=== PATIENT | female | born 1995 | race American Indian/Alaskan Native ===

== ENCOUNTER 2016-12-18 11:04 | Outpatient (CLI) | payer BC | END 2016-12-18 11:05 | disposition home or self-care (01) | LOC: VAS 11:04 | PROVIDERS: ATTEND Family Medicine | DX: M79.605 Pain in left leg (principal) ==

== ENCOUNTER 2021-12-26 15:45 | Emergency (ER) | payer BC, MEDICAID ==
[2021-12-26 18:26] LABS: Alanine Aminotransferase 15 units/L (7-56); Albumin 4.1 g/dL (3.9-5); BUN/Creatinine Ratio 16; Blood Urea Nitrogen 8 mg/dL (7-17); Calcium 9.4 mg/dL (8.4-10.2); Hemolysis Index 29
[2021-12-26 18:37] LABS: Bilirubin,Urine NEG (Negative); Blood,Urine MOD (Negative); Color,Urine Yellow (Yellow); Mucus,Urine FEW /HPF; Protein,Urine <15 mg/dL mg/dL (Negative); RBC,Urine < 1.0 /HPF (0.0-6.0)
[2021-12-26 18:42] LABS: Hematocrit 42.8 % (30.3-42.9); Hemoglobin 13.9 gm/dl (10.1-14.3); Mean Corpuscular HGB Conc 32 % (30-34); Mean Corpuscular Volume 85 fl (79-97); Platelet Count 190 K/mm3 (140-440); Red Blood Count 5.03 M/mm3 (3.65-5.03)
--- NOTE | 2021-12-26 20:00 | Ultrasound Report ---
ULTRASOUND OBSTETRIC Indication: preg, vaginal bleeding Findings: There is a single, living intrauterine . [place]-rump length = 0.4 cm = 6 weeks, 0 day(s). heart rate is 166 beats per minute. The ovaries are normal. There is no free fluid. Impression: Single, living intrauterine with estimated sonographic age of 6 weeks, severe day(s). Signer Name: Shashi Tucker MD Signed: 12/26/2021 7:55 PM Workstation Name: [id number]
--- NOTE | 2021-12-26 20:06 | Emergency Department Report ---
ED HPI - General Chief complaint: Vaginal Bleeding Stated complaint: BLEEDING (PREG) Time Seen by Provider: 12/26/21 16:50 Source: patient Mode of arrival: Ambulatory Limitations: No Limitations - History of Present Illness Initial comments: 26-year-old black female with no past medical history who is G7, P3 at 6 weeks gestation presents to the emergency department for evaluation of vaginal spotting that started this morning. She states that spotting initially started this morning but around 3 PM, it got a little heavier and darker and she started to have some abdominal cramping. She denies dysuria, fever, and nausea vomiting. MD Complaint: vaginal bleeding -: Gradual, This morning Location: abdomen Radiation: LLQ, RLQ Severity: mild Severity scale (0 -10): 3 Quality: cramping Consistency: intermittent Associated symptoms: vaginal bleeding, abdominal pain. denies: nausea/vomiting, vaginal discharge, headache, vision changes, malaise, rash, shortness of breath, syncope, weakness Vaginal bleeding: light :: Yes Number of weeks : 6 OB History - Current : no complications OB History - Previous Pregnancies: miscarriage (X3) Pre- care: followed by OB ([facility]) - Related Data : 7 Para: 3 Ab: 3 (2 miscarriages and 1 elective ) Home Medications Medication Instructions Recorded Confirmed Last Taken No Known Home Medications [No 12/26/21 12/26/21 Unknown Reported Home Medications] Allergies Allergy/AdvReac Type Severity Reaction Status Date / Time No Known Allergies Allergy Unverified 12/26/21 17:05 ED Review of Systems ROS: Stated complaint: BLEEDING (PREG) Other details as noted in HPI Comment: All other systems reviewed and negative Constitutional: denies: chills, fever Respiratory: denies: cough, shortness of breath, SOB with exertion, SOB at rest Cardiovascular: denies: chest pain, palpitations Gastrointestinal: abdominal pain. denies: nausea, vomiting, diarrhea, hematemesis, melena, hematochezia Genitourinary: denies: urgency, dysuria, frequency, hematuria, discharge Musculoskeletal: denies: back pain ED Past Medical Hx - Medications Home Medications: Home Medications Medication Instructions Recorded Confirmed Last Taken Type No Known Home Medications [No 12/26/21 12/26/21 Unknown History Reported Home Medications] ED Physical Exam - General Limitations: No Limitations General appearance: alert, in no apparent distress - Head Head exam: Present: atraumatic, normocephalic - Eye Eye exam: Present: normal appearance. Absent: conjunctival injection - Neck Neck exam: Present: normal inspection, full ROM. Absent: tenderness - Respiratory Respiratory exam: Present: normal lung sounds bilaterally. Absent: respiratory distress, wheezes, rales, rhonchi, stridor, chest wall tenderness - Cardiovascular Cardiovascular Exam: Present: regular rate, normal heart sounds - GI/Abdominal GI/Abdominal exam: Present: soft, normal bowel sounds. Absent: distended, tenderness, guarding, rebound, rigid - Extremities Exam Extremities exam: Present: normal inspection, normal capillary refill. Absent: pedal edema, joint swelling, calf tenderness - Back Exam Back exam: Present: normal inspection. Absent: CVA tenderness (R), CVA tende rness (L) - Neurological Exam Neurological exam: Present: alert, oriented X3, normal gait - Psychiatric Psychiatric exam: Present: normal affect, normal mood - Skin Skin exam: Present: warm, dry, intact, normal color ED Course Vital Signs 12/26/21 12/26/21 15:56 20:16 Temperature 98.4 F Pulse Rate 80 76 Respiratory 16 14 Rate Blood Pressure 114/77 118/73 [Left] O2 Sat by Pulse 97 100 Oximetry ED Medical Decision Making - Lab Data Result diagrams: 12/26/21 18:00 12/26/21 18:00 - Radiology Data Radiology results: report reviewed ultrasound: Findings: There is a single, living intrauterine . [place]-rump length = 0.4 cm = 6 weeks, 0 day(s). heart rate is 166 beats per minute. The ovaries are normal. There is no free fluid. Impression: Single, living intrauterine with estimated sonographic age of 6 weeks, severe day(s). - Medical Decision Making 26-year-old black female with no past medical history who is G7, P3 at 6 weeks gestation presents to the emergency department for evaluation of vaginal spotting that started this morning. She states that spotting initially started this morning but around 3 PM, it got a little heavier and darker and she started to have some abdominal cramping. She denies dysuria, fever, and nausea vomiting. No gross abnormalities noted on exam or labs. Urine negative for UTI. ultrasound shows IUP at 9 weeks several days with no abnormalities noted. Patient to be discharged home to follow-up with [facility] [facility] next week as planned. She is advised to continue vitamins and return to the emergency department for any concerning symptoms. She verbalized understanding of and agreement with plan of care. Critical care attestation.: If time is entered above; I have spent that time in minutes in the direct care of this critically ill patient, excluding procedure time. ED Disposition Clinical Impression: Vaginal bleeding before 22 weeks gestation Disposition: 01 HOME / SELF CARE / HOMELESS Is pt being admited?: No Does the pt Need Aspirin: No Condition: Stable Instructions: Vaginal Bleeding During , First Trimester Additional Instructions: Follow-up with [employer] [facility]. Return to the emergency department as needed. Referrals: [facility] [Provider Group] - 3-5 Days Forms: Work/School Release Form(ED) Time of Disposition: 20:06
[2021-12-26 20:17] VITALS: BP 118/73
== END 2021-12-26 20:17 | disposition home or self-care (01) ==
LOC: ED 15:45
DX: O46.91 Antepartum hemorrhage, unspecified, first trimester (principal); Z3A.01 Less than 8 weeks gestation of pregnancy
CPT/HCPCS: 36415; 76801; 76817; 80053; 81001; 84702; 85027; 99284